=== PATIENT | male | born 1980 | race Caucasian/White ===

== ENCOUNTER 2017-07-11 21:34 | Emergency (ER) | payer OTHER ==
[~2017-07-11] VITALS: Ht 182.9 cm; Wt 65.0 kg
[~2017-07-11 21:34] MED LIST: INSDGI SC; LSN25 PO; NVLGI SC
[2017-07-11 21:35] VITALS: TEMP 36.8; Ht 182.9 cm; Wt 65.0 kg
[2017-07-11 22:21] LABS: BASO % 0.4 %; BASO ABS # 0.02 K/uL (0-0.2); EOS % 2.1 %; EOS ABS # 0.11 K/uL (0-0.5); HEMATOCRIT 40.5 % (42-52); HEMOGLOBIN 13.8 g/dL (14.0-18.0); LYMPH % 42.3 %; LYMPH ABS # 2.25 K/uL (1.2-3.4); MEAN CORPUSCULAR HEMOGLOBIN 31.4 pg (25-34); MEAN CORPUSCULAR HGB CONC 34.1 g/dl (32-36); MEAN PLATELET VOLUME 9.4 fL (7.4-10.4); MONO % 7.3 %; MONO ABS # 0.39 K/uL (0.11-0.59); NEUT % 47.9 %; NEUT ABS # 2.55 K/uL (1.4-6.5); PLATELET COUNT 229 K/uL (130-400); RED CELL DISTRIBUTION WIDTH CV 12.5 % (11.5-14.5); RED CELL DISTRIBUTION WIDTH SD 42.5 fL (36.4-46.3); WHITE BLOOD COUNT 5.32 K/uL (4.8-10.8)
--- NOTE | 2017-07-11 22:25 | EMERGENCY ROOM VISIT NOTE ---
History Report prepared by Alexi: Ashley Ferraro Under the Supervision of: Dr. Shelley Winslow M.D. First contact with patient: 21:50 Chief Complaint: MENTAL HEALTH EVALUATION Stated Complaint: MH History of Present Illness The patient is a 37 year old male who presents to the Emergency Room for a mental health evaluation secondary to a resolved suicidal thought and ideation episode that occurred today. The patient was brought to the Emergency Department by the police. They noted that they found the patient holding a gun, threatening to kill himself. The patient states that he has suicidal thoughts and ideations in the past. HPI limited due to patient being intoxicated and poor cooperation. Source of History: patient History Limited By: poor cooperation, intoxication Onset: today Position: other (mental) Symptom Intensity: Quality: other (mental health evaluation) Timing: resolved Review of Systems See HPI for pertinent positives & negatives. A total of 10 systems reviewed and were otherwise negative. Past Medical & Surgical Insulin-dependent diabetes Hypertension Family History Patient reports no known family medical history. Social History Smoking Status: Current Every Day Smoker Smokeless Tobacco Use: Unknown Alcohol Use: occasionally Marital Status: in relationship Housing Status: lives with family Occupation Status: employed Current/Historical Medications Scheduled Insulin Aspart (Novolog), 0 SC AC Insulin Glargine (Lantus), 20 UNITS SC BID Lisinopril (Lisinopril), 2.5 MG PO DAILY Allergies Coded Allergies: No Known Allergies (Unverified , 07/12/17) Physical Exam Vital Signs Date Time Temp Pulse Resp B/P (MAP) Pulse Ox O2 Delivery O2 Flow Rate FiO2 07/11/17 23:46 82 18 108/60 97 Room Air 07/11/17 21:35 36.8 91 18 123/70 99 Room Air Physical Exam Vital signs reviewed. General: Well-appearing male, somnolent, in no significant distress. Minimally verbal, somewhat uncooperative with exam but not agitated HEENT: No scleral icterus, PERRLA, neck supple. Atraumatic. Cardiovascular: Regular rate and rhythm, no extra sounds. Pulmonary: Clear to auscultation bilaterally, normal work of breathing. Abdomen: Soft, nontender, nondistended, positive bowel sounds. Musculoskeletal: Atraumatic, no peripheral edema. Neurologic: Patient awake alert and oriented x 3, full strength in all 4 extremities. Cranial nerves 2 through 12 grossly intact. Skin: Warm, dry, no rash Psych: refuses to answer questions for psych evaluation. Medical Decision & Procedures Laboratory Results 07/11/17 21:56 Red Blood Count 4.40, Mean Corpuscular Volume 92.0, Mean Corpuscular Hemoglobin 31.4, Mean Corpuscular Hemoglobin Concent 34.1, Mean Platelet Volume 9.4, Neutrophils (%) (Auto) 47.9, Lymphocytes (%) (Auto) 42.3, Monocytes (%) (Auto) 7.3, Eosinophils (%) (Auto) 2.1, Basophils (%) (Auto) 0.4, Neutrophils # (Auto) 2.55, Lymphocytes # (Auto) 2.25, Monocytes # (Auto) 0.39, Eosinophils # (Auto) 0.11, Basophils # (Auto) 0.02 07/11/17 21:56 Test 07/11/17 21:56 07/11/17 22:00 07/12/17 00:52 White Blood Count 5.32 K/uL (4.8-10.8) Red Blood Count 4.40 M/uL (4.7-6.1) Hemoglobin 13.8 g/dL (14.0-18.0) Hematocrit 40.5 % (42-52) Mean Corpuscular Volume 92.0 fL (80-100) Mean Corpuscular Hemoglobin 31.4 pg (25-34) Mean Corpuscular Hemoglobin Concent 34.1 g/dl (32-36) Platelet Count 229 K/uL (130-400) Mean Platelet Volume 9.4 fL (7.4-10.4) Neutrophils (%) (Auto) 47.9 % Lymphocytes (%) (Auto) 42.3 % Monocytes (%) (Auto) 7.3 % Eosinophils (%) (Auto) 2.1 % Basophils (%) (Auto) 0.4 % Neutrophils # (Auto) 2.55 K/uL (1.4-6.5) Lymphocytes # (Auto) 2.25 K/uL (1.2-3.4) Monocytes # (Auto) 0.39 K/uL (0.11-0.59) Eosinophils # (Auto) 0.11 K/uL (0-0.5) Basophils # (Auto) 0.02 K/uL (0-0.2) RDW Standard Deviation 42.5 fL (36.4-46.3) RDW Coefficient of Variation 12.5 % (11.5-14.5) Immature Granulocyte % (Auto) 0.0 % Immature Granulocyte # (Auto) 0.00 K/uL (0.00-0.02) Anion Gap 14.0 mmol/L (3-11) Est Creatinine Clear Calc Drug Dose 88.6 ml/min Estimated GFR () 104.1 Estimated GFR (Non- 89.8 BUN/Creatinine Ratio 14.7 (10-20) Calcium Level 8.5 mg/dl (8.5-10.1) Total Bilirubin 0.4 mg/dl (0.2-1) Direct Bilirubin < 0.1 mg/dl (0-0.2) Aspartate Amino Transf (AST/SGOT) 34 U/L (15-37) Alanine Aminotransferase (ALT/SGPT) 41 U/L (12-78) Alkaline Phosphatase 72 U/L (45-117) Total Protein 6.8 gm/dl (6.4-8.2) Albumin 3.6 gm/dl (3.4-5.0) Beta-Hydroxybutyric Acid 2.46 mg/dL (0.2-2.81) Salicylates Level < 1.7 mg/dl (2.8-20) Acetaminophen Level < 2 ug/ml (10-30) Ethyl Alcohol mg/dL 80.8 mg/dl (0-3) Urine Color YELLOW Urine Appearance CLEAR (CLEAR) Urine pH 5.0 (4.5-7.5) Urine Specific [place] 1.043 (1.000-1.030) Urine Protein NEG (NEG) Urine Glucose (UA) 3+ (NEG) Urine Ketones NEG (NEG) Urine Occult Blood NEG (NEG) Urine Nitrite NEG (NEG) Urine Bilirubin NEG (NEG) Urine Urobilinogen NEG (NEG) Urine Leukocyte Esterase NEG (NEG) Urine Opiates Screen POS (NEG) Urine Methadone, Qualitative NEG (NEG) Urine Barbiturates NEG (NEG) Urine Phencyclidine (PCP) Level NEG (NEG) Ur Amphetamine/Methamphetamine POS (NEG) MDMA (Ecstasy) Screen NEG (NEG) Urine Benzodiazepines Screen NEG (NEG) Urine Cocaine Metabolite NEG (NEG) Urine Marijuana (THC) POS (NEG) Bedside Glucose 203 mg/dl (70-99) Laboratory results per my review. Medications Administered Medications (Trade) Dose Ordered Sig/Keyshawn Route Start Time Stop Time Status Last Admin Dose Admin Insulin Human Regular (novoLIN-R U-100 PER UNIT) 10 units NOW STAT SC 07/11/17 23:17 07/11/17 23:19 DC 07/11/17 23:40 10 UNITS ED Course 2223: Past medical records reviewed. The patient was evaluated in room A6. A complete history and physical examination was performed. 2317: Patients glucose is 423. Ordered Insulin Human Regular 10 units. 0026: Repeating glucose. 0049: Medically clear. Somewhat obtundent yet. 0101: The patients glucose is 203. Medical Decision Differential diagnosis: Etiologies such as mood disorder, infection, hypoglycemia, electrolyte abnormalities, cardiac sources, intracerebral event, toxicologic, neurologic, as well as others were entertained. This patient was evaluated and appeared to be in no significant distress. Medical evaluation reveals hyperglycemia. The patient was given 10 units of regular insulin subcutaneously. Patient's blood sugar did come down to 203. He was encouraged with by mouth fluids. The patient has a 302 warrant by police regarding loading shotguns and threatening suicide this evening. He did barricaded himself in the house. The patient refuses voluntary admission and the 302 was signed. A bed search is currently underway. The case will be signed out to Dr. Dozier at the change of shift pending at the health placement. Medication Reconcilliation Current Medication List: was personally reviewed by me Impression Primary Impression: Suicidal ideation Additional Impressions: Hyperglycemia Poorly controlled diabetes mellitus Scribe Attestation The scribe's documentation has been prepared under my direction and personally reviewed by me in its entirety. I confirm that the note above accurately reflects all work, treatment, procedures, and medical decision making performed by me. Departure Information Referrals Priyanka Dawn M.D. (PCP) Forms HOME CARE DOCUMENTATION FORM, IMPORTANT VISIT INFORMATION Patient Instructions My [facility] Problem Qualifiers
[2017-07-11 22:44] LABS: ALBUMIN 3.6 gm/dl (3.4-5.0); ALKALINE PHOSPHATASE 72 U/L (45-117); ALT/SGPT 41 U/L (12-78); AST/SGOT 34 U/L (15-37); BLOOD UREA NITROGEN 16 mg/dl (7-18); CALCIUM 8.5 mg/dl (8.5-10.1); CARBON DIOXIDE 22 mmol/L (21-32); CREATININE 1.06 mg/dl (0.60-1.40); GLUCOSE 435 mg/dl (70-99); POTASSIUM 3.9 mmol/L (3.5-5.1); SODIUM 137 mmol/L (136-145); TOTAL PROTEIN 6.8 gm/dl (6.4-8.2)
[2017-07-11] MEDS ORDERED: NovoLIN-R INSULIN PER UNIT CHARGE SC STA (23:17)
[2017-07-12] MEDS ORDERED: LISINOPRIL 2.5 MG TAB PO STA (04:54)
--- NOTE | 2017-07-12 05:59 | EMERGENCY ROOM VISIT NOTE ---
ED Visit Note First contact with patient: 04:54 This case was signed out to me at change of shift awaiting bed placement. [facility] and [facility] are having difficulty finding [facility] for him. Currently his information was relayed to [facility] and they are looking for a bed. He has been resting comfortably. I will prescribe his morning medications. The patient has been accepted at [facility] in [place], [place]. He will be transported there by the [place].
[2017-07-12 07:32] VITALS: BP 132/75; PULSE 96; O2SAT 99
== END 2017-07-12 07:58 ==
LOC: EDBD 21:34 → C.EDA 21:36
DX: R45.851 Suicidal ideations (principal); E11.65 Type 2 diabetes mellitus with hyperglycemia; F19.920 Other psychoactive substance use, unspecified with intoxication, uncomplicated; I10 Essential (primary) hypertension; F17.200 Nicotine dependence, unspecified, uncomplicated; Z79.4 Long term (current) use of insulin

== ENCOUNTER 2023-01-07 12:13 | Inpatient (IN) ==
--- NOTE | 2023-01-07 12:30 | Emergency Department Note ---
Impression & Plan Tension pneumothorax, Type 1 diabetes mellitus, Tobacco use disorder, Hypertension ED Provider Note NAME: WOLF SARABIA AGE: 42 SEX: M : 1980 ARRIVES VIA: Walk-In INFORMANT: Patient, ED PROVIDER(S): Brooks Ball MD CHIEF COMPLAINT: Shortness of breath MEDICAL DECISION MAKING: Patient presents due to concern for shortness of breath associated chest discomfort with concern for spontaneous pneumothorax. IV was established blood was obtained along with a chest x-ray and EKG. The patient was ordered IV morphine and IV fluids. Patient's chest x-ray did show concern for right-sided tension pneumothorax. The patient was not extremis. The patient did have a pigtail catheter chest tube placed with post placement chest x-ray showed reexpansion of the patient's lung. The patient was ordered additional IV morphine. Patient's blood work shows normal white count H&H and platelet count. Kidney function is unremarkable. BSG at 205. LFTs and troponin not elevated. COVID- negative. I did speak with on-call multimedia technician Dr. Hannah will be consulted on the inpatient service. I did speak with the on-call hospitalist Dr. Stearns and the patient was admitted to the medicine service. Patient did have a CT noncontrast of the chest ordered as recommended by pulmonology. Patient does have small right residual pneumothorax but markedly decreased in size compared to initial chest x-ray. Patient may have some reexpansion pulmonary edema. Additional management deferred to inpatient team. Critical Care: I have personally spent 45 minutes of critical care time in direct management of this patient. This includes bedside care, interpretation of diagnostic studies, and testing, discussion with consultants, patient, and family members, and other require inpatient management activities. This 45 minutes is in excess of all separately billable procedures. Procedures: Tube Thoracostomy performed by Dr. Ball Indication: Pneumothorax right chest Verbal consent was obtained after the risks and benefits were explained, including but not limited to cardiac/liver/lung injury, bleeding, scarring, infection, pain, and bone/joint/nerve damage. At this time, the risks of the procedure are less than the risks of NOT performing the procedure. A time out was taken and the correct patient and site identified. This is also confirmed by looking at the patient's chest x-ray at the bedside. The patient was prepped and draped in the standard surgical fashion. 1% lidocaine with epinephrine was infused over the right fifth intercostal space into the subcutaneous tissue. An 18-gauge finder needle was placed into the intercostal space after appropriate local anesthesia was appreciated. Air was aspirated within the 10 cc syringe. The syringe was removed and a guidewire was placed. The finder needle was removed while holding the guidewire in place. A skin jenny was applied using the a scalpel and then a dilator was inserted. A 9 [place] thoracostomy tube was inserted in the superior/posterior portion of the pleural space. 1-0 silk suture was used to approximate the skin above the thoracostomy tube and then used to secure the thoracostomy tube. An occlusive dressing was then placed and the thoracostomy tube was hooked to the Pleur-evac suction. The patient tolerated the procedure well without complications. A postoperative x-ray was then performed which showed the thoracostomy tube in the correct position. Prior /Outside records reviewed: I did review a diabetes visit from [facility] from October 2022. Patient does have a known history of type 1 diabetes hypertension hyperlipidemia Differential diagnosis: Reactive airway disease, pneumonia, pneumothorax, COPD, CHF, infections, cardiac ischemia, pulmonary embolism, musculoskeletal, gastrointestinal, as well as other pathologies. Diagnostics, as interpreted by me: ECG: Sinus bradycardia, rate of 58, normal intervals and normal axis T wave version in V2. Cardiac monitoring: An order was placed for continuous cardiac monitoring. The monitor shows a rate of 71 with sinus rhythm. Patient was placed on pulse oximetry Medical decision rules: Heart score, Wells score Imaging studies: See below I informally reviewed the patient's initial chest x-ray which does show a right- sided pneumothorax. I informally reviewed the patient's postprocedure chest x-ray which shows satisfactory placement of pigtail catheter and resolution of the patient's pneumothorax with appropriate lung expansion. HPI: Patient presents due to concern for shortness of breath and associated chest pains. The patient states that this began last evening was more in his right back. The patient denies any coughing fits falls or trauma. Patient states that he has had some associated chest pain and shortness of breath. Patient relates that while he was at [facility] today he did have an acupuncture treatment which did not help with his shortness of breath or chest pain. The patient did have an x-ray which showed a pneumothorax and thus he was referred here for further evaluation and treatment. Patient states that he did not have any coughing fits and was not bearing down and did not have any sneezing episodes prior to his symptoms. The patient is a chronic smoker beginning smoking when he was 14 years of age. The patient denies any leg swelling or calf pain. No fevers or chills. PAST MEDICAL HISTORY: See Below PAST SURGICAL HISTORY: See Below SOCIAL HISTORY: See Below HOME MEDICATIONS: See Below ALLERGIES: See Below VITALS: See Below PHYSICAL EXAMINATION: GENERAL: Wearing glasses, nasal cannula in place, mildly uncomfortable in appearance. Thin in appearance. EYE EXAM: Normal conjunctiva. PERRL, no anisocoria and EOM's grossly intact w/o pain. Oropharynx: Grossly normal dentition, moist mucous membranes. NECK: Supple, no nuchal rigidity, no adenopathy, non-tender. No signs of meningi smus. FROM of the neck with good chin to chest and neck extension. No stridor. LUNGS: Decreased breath sounds right chest. Normal chest wall mechanics. HEART: NSR, no MRG. ABDOMEN: Abdomen soft, non-tender, no masses, no rebound or guarding. BACK: No CVA TTP. SKIN: No rashes and no bruising. UPPER EXTREMITIES: Upper extremities are grossly normal. LOWER EXTREMITIES: Grossly normal, no edema. Negative Homans' sign bilaterally. NEURO EXAM: A&O x3, cranial nerves II-XII grossly intact, normal speech, moves all 4 extremities. Past Med/Surg History Medical History Dyslipidemia Generalized anxiety disorder Hypertension Nondisplaced fracture of proximal phalanx of left index finger Substance abuse in remission Tobacco use disorder Type 1 diabetes mellitus Surgical History No pertinent past surgical history Social History Smoking Status: Current every day smoker Cigarettes Per Day: 10-15; Preferred Language: Kinyarwanda Feels Safe at Home: Yes Allergies Allergies Allergy/AdvReac Type Severity Reaction Status Date / Time insulin degludec Allergy Unknown Unverified 11/03/22 13:56 [From Tresiba FlexTouch U-100] rosuvastatin AdvReac Intermediate Dizziness Verified 11/03/22 13:57 atorvastatin AdvReac sore Verified 11/03/22 13:56 shoulders Home Meds Home Medications Medication Instructions Recorded Confirmed lisinopril 2.5 mg tablet 2.5 mg PO DAILY 09/24/20 01/07/23 blood sugar diagnostic (Accu-Chek #10 ea 06/06/22 11/03/22 Guide test strips) insulin aspart U-100 100 unit/mL 14 unit subcut DIRECTED 06/06/22 01/07/23 (3 mL) subcutaneous pen (Novolog FlexPen U-100 Insulin aspart) insulin glargine 100 unit/mL (3 16 unit subcut BID 11/03/22 01/07/23 mL) subcutaneous pen (Lantus Solostar U-100 Insulin) pravastatin 20 mg tablet 20 mg PO DAILY 11/03/22 01/07/23 Previous Rx's Medication Instructions Recorded glucagon 3 mg/actuation nasal 3 mg intranasal ONCE #2 ea 10/31/20 spray (Baqsimi) Results & Data (ED) Vital Signs Vital Signs - 24 hr 01/07/23 12:15 01/07/23 12:27 01/07/23 12:38 Temperature 36.5 C Temperature Source Temporal Artery Scan Pulse Rate 75 65 Pulse Rate [Apical] 63 Pulse Rate from SpO2 Sensor Respiratory Rate 18 18 Respiratory Effort / Characteristics Non-Labored Spontaneous Respiratory Depth Normal Respiratory Pattern Regular Blood Pressure 117/62 Blood Pressure [Right Arm] 123/72 Blood Pressure Mean 80 Blood Pressure Mean [Right Arm] 89 Pulse Oximetry 94 96 Oxygen Delivery Method Room Air Oxygen Flow Rate Sepsis Recent Fever Within 48 Hours No Sepsis New/Unexplained Change in Mental Status No Sepsis Action Taken by Nursing No Action Required 01/07/23 13:01 01/07/23 13:30 01/07/23 14:00 Temperature Temperature Source Pulse Rate 72 56 L Pulse Rate [Apical] Pulse Rate from SpO2 Sensor 63 Respiratory Rate 19 14 Respiratory Effort / Characteristics Short of Breath Respiratory Depth Shallow Respiratory Pattern Blood Pressure 132/74 Blood Pressure [Right Arm] Blood Pressure Mean 93 Blood Pressure Mean [Right Arm] Pulse Oximetry 98 97 Oxygen Delivery Method Nasal Cannula Room Air Oxygen Flow Rate 3 Sepsis Recent Fever Within 48 Hours Sepsis New/Unexplained Change in Mental Status Sepsis Action Taken by Nursing 01/07/23 15:05 01/07/23 16:26 01/07/23 16:48 Temperature Temperature Source Pulse Rate 44 L 46 L Pulse Rate [Apical] Pulse Rate from SpO2 Sensor Respiratory Rate 17 Respiratory Effort / Characteristics Respiratory Depth Respiratory Pattern Blood Pressure 126/75 Blood Pressure [Right Arm] Blood Pressure Mean 92 Blood Pressure Mean [Right Arm] Pulse Oximetry 98 Oxygen Delivery Method Room Air Room Air Oxygen Flow Rate 3 Sepsis Recent Fever Within 48 Hours Sepsis New/Unexplained Change in Mental Status Sepsis Action Taken by [facility] Medications Current Medication List: was personally reviewed by me Laboratory Data Attestation: I reviewed the patient's lab results. 01/07/23 12:20 01/07/23 12:20 Lab Results 01/07/23 01/07/23 01/07/23 Range/Units 12:20 12:20 13:00 WBC 6.13 (4.8-10.8) K/ul RBC 4.76 (4.70-6.10) M/uL Hgb 14.9 (14.0-18.0) g/dl Hct 43.4 (42.0-52.0) % MCV 91.2 (80.0-100.0) fL MCH 31.3 (25.0-34.0) pg MCHC 34.3 (32.0-36.0) g/dL RDW Std Deviation 38.7 (36.4-46.3) fL RDW Coeff of Julius 11.4 L (11.5-14.5) % Plt Count 209 (130-400) K/uL MPV 9.8 (9.4-12.4) fL Immature Gran % (Auto) 0.2 % Neut % (Auto) 65.4 % Lymph % (Auto) 27.2 % [place] % (Auto) 6.7 % Eos % (Auto) 0.3 % Baso % (Auto) 0.2 % Neut # (Auto) 4.01 (1.40-6.50) K/uL Lymph # (Auto) 1.67 (1.2-3.4) K/uL [place] # (Auto) 0.41 (0.11-0.59) K/uL Eos # (Auto) 0.02 (0-0.50) K/uL Baso # (Auto) 0.01 (0-0.2) K/uL Immature Gran # (Auto) 0.01 (0.01-0.20) K/uL Sodium 137 (136-145) mmol/L Potassium 4.2 (3.5-5.1) mmol/L Chloride 105 (98-107) mmol/L Carbon Dioxide 26 (21-32) mmol/L Anion Gap 6 (3-11) BUN 9 (6-23) mg/dl Creatinine 1.01 (0.6-1.4) mg/dl Est Cr Clr Drug Dosing 93.9 ml/min Est GFR ( Amer) 106.6 ml/min Est GFR (Non-Af Amer) 92.0 ml/min BUN/Creatinine Ratio 8.9 L (10-20) Glucose 205 H (70-99(Fasting)) mg/dl Calcium 9.0 (8.6-10.3) mg/dl Magnesium 2.0 (1.7-2.4) mg/dl Total Bilirubin 0.6 (0.2-1.0) mg/dl AST 31 (13-39) U/L ALT 25 (7-52) U/L Alkaline Phosphatase 68 (34-104) U/L Troponin I High Sens 4.3 (0-20) pg/ml Total Protein 6.9 (6.0-8.3) gm/dl Albumin 4.4 (3.4-5.0) gm/dl Globulin 2.5 (2.5-4.0) gm/dl Albumin/Globulin Ratio 1.8 (0.9-2) SARS-CoV-2, RNA, NAAT NEGATIVE (NEGATIVE) Administered Medications Discontinued Medications Sodium Chloride (Nss 1000ml) 1,000 mls @ 999 mls/hr IV .Q1H1M MIKAEL Stop: 01/07/23 13:45 Last Infusion: 01/07/23 14:04 Dose: 0 mls/hr Documented By: Admin: 01/07/23 13:03 Dose: 999 mls/hr Documented By: MMClare Lidocaine/Epinephrine (Lidocaine 1%/Epinephrine 1:100,000 20 Ml Vial) 20 ml INFIL NOW STA Stop: 01/07/23 12:43 Last Admin: 01/07/23 13:24 Dose: 20 ml Documented By: KDL Lidocaine/Epinephrine (Lido/Epinephrine/Sod Bicarb 50 Ml Vial) Confirm Administered Dose 1 ml INFIL .STK-MED ONE Stop: 01/07/23 12:43 Last Admin: 01/07/23 13:23 Dose: Not Given Documented By: MARIELA Morphine Sulfate (Morphine Sulfate 4 Mg/Ml 1 Ml Carp\Vial) 4 mg IV NOW STA Stop: 01/07/23 12:34 Last Admin: 01/07/23 13:03 Dose: 4 mg Documented By: MARIELA Morphine Sulfate (Morphine Sulfate 4 Mg/Ml 1 Ml Carp\Vial) 4 mg IV NOW STA Stop: 01/07/23 15:04 Last Admin: 01/07/23 15:08 Dose: 4 mg Documented By: MARIELA Imaging Data Radiologist's Impression: Chest X-Ray 01/07/23 12:33 SINGLE VIEW CHEST CLINICAL HISTORY: Dyspnea. FINDINGS: 2 AP, portable, upright chest radiographs are obtained. No prior studies are available for comparison at the time of dictation. There is a large right pneumothorax with near complete atelectasis of the right lung. There is leftward deviation of the trachea indicating tension. The left lung appears clear. There is leftward shift of mediastinum. The heart is normal in size. No large pleural effusion is seen. No left-sided pneumothorax is identified. The bony thorax is grossly intact. IMPRESSION: Large right-sided tension pneumothorax with near complete atelectasis of the right lung and leftward shift of the mediastinum. ACT 112: Negative or not required by law. Electronically signed by: Jakob Gandara M.D. 01/07/2023 12:54 PM Chest X-Ray 01/07/23 13:34 XR chest 1V portable HISTORY: Right-sided pneumothorax. Post chest tube placement. post pigtail COMPARISON: Chest 01/07/2023. FINDINGS: Interval placement of a right-sided chest tube which terminates in the right upper hemithorax. Significant decrease in size in the now small right pneumothorax. This demonstrate a maximal pleural gap of 7 mm. Right basilar linear densities favor subsegmental atelectasis. The left lung is clear. No mediastinal shift. The heart is normal in size. IMPRESSION: Significant decrease in size in the now small right-sided pneumothorax status post chest tube placement. Interval resolution of the mediastinal shift. ACT 112: Negative or not required by law. Electronically signed by: Jmaes Diaz M.D. 01/07/2023 1:[address] 01/07/23 13:53 CT OF THE CHEST WITHOUT IV CONTRAST CLINICAL HISTORY: post PNX treatment COMPARISON STUDY: Chest radiographs performed earlier today. CT DOSE: 268.86 mGy.cm TECHNIQUE: Axial images of the chest were obtained without IV contrast. Images were reviewed in the axial, sagittal, and coronal planes. IV contrast was not administered for this examination. Automated exposure control was utilized for the study. A dose lowering technique was utilized adhering to the principles of ALARA. FINDINGS: The right anterior pleural catheter is in place. A small residual right pneumothorax is noted. This is markedly decreased in size since initial chest radiograph performed earlier today and mildly decreased in size since subsequent chest radiograph. Scattered alveolar opacities throughout the right lung are present. Subpleural right lower lobe opacity reflects atelectasis. There is no left pneumothorax. No acute rib fractures are identified. There are numerous subpleural lucencies within the right upper lobe. These favor paraseptal emphysema however subpleural blebs could appear similar. Size of the heart is normal. There is no pericardial effusion. There is no thoracic lymphadenopathy. IMPRESSION: 1. Right anterior pleural catheter in place with small residual right pneumothorax, markedly decreased in size since initial chest radiograph. 2. Scattered alveolar opacities throughout the right lung. Mild interlobular septal thickening. The findings are nonspecific but could reflect reexpansion pulmonary edema. Subpleural right lower lobe opacity represents minimal residual atelectasis. 3. Multiple subpleural lucencies within the lungs, greater on the right. The findings favor paraseptal emphysema however small blebs could appear similar. ACT 112: Negative or not required by law. Electronically signed by: Garrett Bailey M.D. 01/07/2023 3:51 PM Discharge Plan Visit Data Chief Complaint: Shortness of Breath/Dyspnea Stated Complaint: COLLAPED LUNG ED Provider: Brooks Ball Discharge Problem: Tension pneumothorax, Type 1 diabetes mellitus, Tobacco use disorder, Hypertension Forms Stand Alone Forms: My [employer] Prescriptions Prescriptions: No Action lisinopril 2.5 mg tablet 2.5 mg PO DAILY Rx Instructions: 5 MG TAB TO TAKE 2.5 DAILY [facility]ified with [facility]- 01/07/23 (DME) Accu-Chek Guide test strips Strip See Rx Instructions .ROUTE .MEDSUPPLY Qty: 10 Rx Instructions: test 5 times daily insulin aspart U-100 [Novolog FlexPen U-100 Insulin] 100 unit/mL (3 mL) insulin pen 14 unit subcut DIRECTED Rx Instructions: INJECT 6 UNITS SQ LUNCH AND 8 UNITS SQ SUPPER FOR DIABETE 3 TIMES A DAY Verified with [facility]- 01/07/23 insulin glargine [Lantus Solostar U-100 Insulin] 100 unit/mL (3 mL) insulin pen 16 unit subcut BID Rx Instructions: INJECT 15 UNITS BID Verified with [facility]ist- 01/07/23 Baqsimi 3 mg/actuation spray,non-aerosol 3 mg intranasal ONCE Qty: 2 4RF Rx Instructions: [facility] pharmacist wasn't able to verify pravastatin 20 mg tablet 20 mg PO DAILY Rx Instructions: 40 MG TABLET IN HALF FOR 20 MG DAILY Verified with [facility]- 01/07/23 Referrals Referrals: Omar Hernandez MD [Outside Practitioners] -
[2023-01-07] MEDS ORDERED: LIDOCAINE 1%/EPINEPHRINE 1:100,000 50 ML VIAL INFIL ONE (12:33)
[2023-01-07] MEDS ORDERED: MoRPHine SULFATE 4 MG/ML 1 ML CARP\\VIAL IV STA ×2 (12:33→15:03)
[2023-01-07] MEDS ORDERED: LIDOCAINE 1%/EPINEPHRINE 1:100,000 20 ML VIAL INFIL STA (12:42)
[2023-01-07] MEDS ORDERED: LIDO/EPINEPHRINE/SOD BICARB 50 ML VIAL INFIL ONE (12:42)
[2023-01-07] MEDS ORDERED: SODIUM CHLORIDE 0.9% 1000ML 1,000 ML IV SCH (12:45)
--- NOTE | 2023-01-07 12:56 | XRay Report ---
SINGLE VIEW CHEST CLINICAL HISTORY: Dyspnea. FINDINGS: 2 AP, portable, upright chest radiographs are obtained. No prior studies are available for comparison at the time of dictation. There is a large right pneumothorax with near complete atelectas is of the right lung. There is leftward deviation of the trachea indicating tension. The left lung ap pears clear. There is leftward shift of mediastinum. The heart is normal in size. No large pleural ef fusion is seen. No left-sided pneumothorax is identified. The bony thorax is grossly intact. IMPRESSION: Large right-sided tension pneumothorax with near complete atelectasis of the right lung a nd leftward shift of the mediastinum. ACT 112: Negative or not required by law. Electronically signed by: Jakob Gandara M.D. 01/07/2023 12:54 PM
[2023-01-07 13:17] LABS: Basophils # (auto) 0.01 K/uL (0-0.2); Basophils % (auto) 0.2 %; Eosinophils # (auto) 0.02 K/uL (0-0.50); Eosinophils % (auto) 0.3 %; Hematocrit (blood only) 43.4 % (42.0-52.0); Hemoglobin 14.9 g/dl (14.0-18.0); Immature Granulocytes # (auto) 0.01 K/uL (0.01-0.20); Immature Granulocytes % (auto) 0.2 %; Lymphocytes # (auto) 1.67 K/uL (1.2-3.4); Lymphocytes % (auto) 27.2 %; Mean Corpuscular Hemoglobin 31.3 pg (25.0-34.0); Mean Corpuscular Hgb Conc 34.3 g/dL (32.0-36.0); Mean Corpuscular Volume 91.2 fL (80.0-100.0); Mean Platelet Volume 9.8 fL (9.4-12.4); Monocytes # (auto) 0.41 K/uL (0.11-0.59); Monocytes % (auto) 6.7 %; Neutrophils # (auto) 4.01 K/uL (1.40-6.50); Neutrophils % (auto) 65.4 %; Platelet Count 209 K/uL (130-400); RDW Coefficient of Variation 11.4 % (11.5-14.5); RDW Standard Deviation 38.7 fL (36.4-46.3); Red Blood Count 4.76 M/uL (4.70-6.10); White Blood Count 6.13 K/ul (4.8-10.8)
[2023-01-07 13:25] LABS: Albumin Globulin Ratio 1.8 (0.9-2); Albumin Level 4.4 gm/dl (3.4-5.0); BUN Creatinine Ratio 8.9 (10-20); Bilirubin,Total 0.6 mg/dl (0.2-1.0); Creatinine Clr Calc Pharmacy 93.9 ml/min; Est GFR (African American) 106.6 ml/min; Globulin 2.5 gm/dl (2.5-4.0); Potassium 4.2 mmol/L (3.5-5.1); Total Protein 6.9 gm/dl (6.0-8.3)
[2023-01-07 13:32] LABS: Troponin I High Sensitivity 4.3 pg/ml (0-20)
--- NOTE | 2023-01-07 13:56 | History & Physical Report ---
Date of Service January 07, 2023 Assessment & Plan (1) Tension pneumothorax: Plan: RIGHT Spontaneous pneumothorax, first episode with shortness of breath/chest pain - Spontaneous pneumothorax, first episode. Denies inciting trauma but was lifting boxes shortly before episode started - Tobacco use since age 14 - S/p pigtail placement in ER with lung re-expansion - Pulmonary consulted: Non-con CT recommended and will see. No leukocytosis Creatinine 1.01 BSG 205 High-sensitivity troponin is normal EKG: Sinus bradycardia. Incomplete right bundle branch block, QTc 402. No territorial signs of ischemia CXR 01/07/2023: Large right-sided tension pneumothorax with near complete atelectasis of the right lung and leftward shift of the mediastinum Repeat CXR: Significant decrease in size in the now small right-sided pneumothorax status post chest tube placement. Interval resolution of the mediastinal shift. Routine chest tube care, suction overnight then clamp if doing well. Morning chest x-ray for surveillance ordered CTchest: 1. Right anterior pleural catheter in place with small residual right pneumothorax, markedly decreased in size since initial chest radiograph. 2. Scattered alveolar opacities throughout the right lung. Mild interlobular septal thickening. The findings are nonspecific but could reflect reexpansion pulmonary edema. Subpleural right lower lobe opacity represents minimal residual atelectasis.3. Multiple subpleural lucencies within the lungs, greater on the right. The findings favor paraseptal emphysema however small blebs could appear similar. Type I DM Follows with endocrine as outpatient at [facility] Has declined insulin pump previously Goal BSG [id number] No evidence of DKA on admission, slightly hyperglycemic at 205 Last A1c greater than 9% We will continue home Lantus 17 units morning, 20 units evening per last note but --> now 15 BID per pt. Pharmacy glycemic consult placed for adjustments Polysubstance abuse Patient reports that he did use methamphetamine for the first time this past Thursday, first use in 5 years. Also uses multiple forms of marijuana daily including flower, smoked, and vape. He denies history of COPD or wheezing, discussed fact of ongoing tobacco use and substance use on development of COPD and association with pneumothorax. Patient declines nicotine replacement therapy on admission Hypertension Lisinopril continued DVT prophylaxis: SCDs Disposition: PCU CODE STATUS: Full code Diet: DM 1 (2) Tobacco use disorder: (3) Type 1 diabetes mellitus: (4) Hypertension: (5) Dyslipidemia: History of Present Illness Primary Care Provider: NO PCP Dennis is a 42-year-old male with a past medical history of diabetes mellitus, hypertension, hyperlipidemia, tobacco use who presents with shortness of breath and chest pain. He was found to have a spontaneous pneumothorax at the [facility] today Art is seen at the bedside Thursday night was loading his car. Had a cigarette after and laid down felt a sudden sharp pain shoot across his back. Went to lay flat and felt restricted. Couldnt lay on R side, L side was confirmable and fell asleep Got up this morning and was very short of breath and having a ton a ton of pain in his R shoulder and back. No wheezing [facility] Had an acupuncture treatment above the lip which actually helped his back muscle tension. Due to the severity of his symptoms was sent for an XR and was given a script for NSAID and muscle relaxer. Go ta call as he was walking in --> told to come directly to the ER No history of chest trauma or injury Denies history of heart disease No fevers, chills, or sweats. Denies cough, no sputum production Denies history of COPD, denies any inhaler use Tobacco Use: Since 14 years old, ~1ppd. Etoh: One day per week, 1-3 per sitting. No history of withdrawal Marijuana: Daily smoked in addition to vape pen, concentrates and flour Recreational Drug use: Intermittent methamphetamine use. smoked meth this past thursday, first travis ehe used in ~5 years. Denies hx of IVDU. Medical History: Reviewed Medications: Reviewed Surgical History: Reviewed Family history: Reviewed Allergies: Reviewed Code Status: Full Code Allergies Allergy/AdvReac Type Severity Reaction Status Date / Time insulin degludec Allergy Unknown Unverified 11/03/22 13:56 [From Tresiba FlexTouch U-100] rosuvastatin AdvReac Intermediate Dizziness Verified 11/03/22 13:57 atorvastatin AdvReac sore Verified 11/03/22 13:56 shoulders Home Medications Medication Instructions Recorded Confirmed Type lisinopril 2.5 mg tablet 2.5 mg PO DAILY 09/24/20 01/07/23 History glucagon 3 mg/actuation nasal 3 mg intranasal ONCE #2 ea 10/31/20 11/03/22 Rx spray (Baqsimi) blood sugar diagnostic (Accu-Chek #10 ea 06/06/22 11/03/22 History Guide test strips) insulin aspart U-100 100 unit/mL 14 unit subcut DIRECTED 06/06/22 01/07/23 History (3 mL) subcutaneous pen (Novolog FlexPen U-100 Insulin aspart) insulin glargine 100 unit/mL (3 16 unit subcut BID 11/03/22 01/07/23 History mL) subcutaneous pen (Lantus Solostar U-100 Insulin) pravastatin 20 mg tablet 20 mg PO DAILY 11/03/22 01/07/23 History Past Med/Surg History Medical History (Updated 01/07/23 @ 15:11 by Santos Hannah MD) Dyslipidemia Generalized anxiety disorder Hypertension Nondisplaced fracture of proximal phalanx of left index finger Substance abuse in remission Tobacco use disorder Type 1 diabetes mellitus Surgical History No pertinent past surgical history Social History Smoking Status: Current every day smoker Cigarettes Per Day: 10-15; Preferred Language: Yemeni Feels Safe at Home: Yes Results & Data Results & Data Vital Signs (Past 12 Hours) Vital Signs Temp Pulse Pulse Resp BP BP Pulse Ox 01/07/23 13:30 72 19 98 01/07/23 13:01 01/07/23 12:38 65 01/07/23 12:27 63 18 123/72 96 01/07/23 12:15 36.5 C 75 18 117/62 94 O2 Del Method O2 Flow Rate 01/07/23 13:30 01/07/23 13:01 Nasal Cannula 3 01/07/23 12:38 01/07/23 12:27 01/07/23 12:15 Room Air PG Care Time/CCT Total # of Minutes Spent Total Time Spent with Patient: Total time spent is greater than 50% in coordination of care (as documented) at patient's floor/unit and/or counseling patient: Coding Level of Care Code 57919 INT INP/OBS CARE 3/75MIN Diagnoses Tension pneumothorax J93.0 Tobacco use disorder F17.200 Type 1 diabetes mellitus E10.9 Hypertension I10 Hypertension type: essential hypertension Dyslipidemia E78.5 (4) Hypertension Hypertension type: essential hypertension Qualified Code(s): I10 - Essential (primary) hypertension
--- NOTE | 2023-01-07 13:59 | XRay Report ---
XR chest 1V portable HISTORY: Right-sided pneumothorax. Post chest tube placement. post pigtail COMPARISON: Chest 01/07/2023. FINDINGS: Interval placement of a right-sided chest tube which terminates in the right upper hemithor ax. Significant decrease in size in the now small right pneumothorax. This demonstrate a maximal pleu ral gap of 7 mm. Right basilar linear densities favor subsegmental atelectasis. The left lung is eva r. No mediastinal shift. The heart is normal in size. IMPRESSION: Significant decrease in size in the now small right-sided pneumothorax status post chest tube placeme nt. Interval resolution of the mediastinal shift. ACT 112: Negative or not required by law. Electronically signed by: James Diaz M.D. 01/07/2023 1:58 PM
--- NOTE | 2023-01-07 15:09 | Pulmonary Consultation ---
Date of Consultation January 07, 2023 Assessment & Plan (1) Tension pneumothorax: (2) COPD (chronic obstructive pulmonary disease): (3) Tobacco use disorder: Plan Impression: 42-year-old male with history of tobacco abuse presenting with spontaneous pneumothorax. Suspect this is secondary to underlying obstructive lung disease and may have been exacerbated by concomitant marijuana use. Recommendations: 1. Pneumothorax: The dressing was taken down and a repeat dressing was applied with a stopcock in place to allow for clamping trials. The patient has no airleak with cough. Appropriate titling of the tube is noted. The tube was secured in place. Would recommend he remain on suction overnight tonight. If he does well, can proceed with clamping trial in the a.m.. 2. Recommend proceeding with CT of the chest to evaluate for structural lung disease. No fibro follicular adenomas to suggest Issa Dubay syndrome. No family history. Further recommendations will be based on assessment of the patient's CT scan. 3. Smoking cessation and marijuana smoking cessation recommended. 4. Outpatient PFTs in 8 weeks recommended. 5. Patient should avoid commercial flights or significant changes in barometric pressure for at least the next 4 to 5 weeks. Given the spontaneous nature of this event, would not recommend the patient never participate in scuba diving. Additional recommendations will be based on results of imaging studies. Questions were answered by the patient and his the best my ability. They are in agreement with plan as outlined History of Present Illness History of Present Illness Asked by the ER staff to evaluate this patient status post pigtail catheter placement for spontaneous pneumothorax. History is obtained from discussion with the patient as well as review of the electronic medical record. The patient is a 42-year-old male who is an active tobacco abuser. He has a [id number] history and continues to smoke at the rate of 1 pack/day. He states that last evening while going to bed he developed a sharp pain in his right chest. He was able to find a comfortable position and slept through the night. He had smoked some marijuana last night but did not report any significant coughing. He continued to have significant pain and shortness of breath. He went to the CT and had acupuncture performed of his lip however this did not resolve his shortness of breath and he was sent for an x-ray at the CT which reportedly showed a pneumothorax with tension physiology and the patient was advised to go directly to the emergency room. He was seen here and repeat chest x-ray performed demonstrating tension pneumothorax. He was treated with an 8 Hungarian pigtail catheter with follow-up imaging showing resolution of the tension pneumothorax. The patient states his pain and shortness of breath are better. Patient denies any skin lesions. He has no family history of pneumothorax that he is aware of. No history of trauma. No infectious symptoms. Allergies Allergy/AdvReac Type Severity Reaction Status Date / Time insulin degludec Allergy Unknown Unverified 11/03/22 13:56 [From Tresiba FlexTouch U-100] rosuvastatin AdvReac Intermediate Dizziness Verified 11/03/22 13:57 atorvastatin AdvReac sore Verified 11/03/22 13:56 shoulders Home Medications Medication Instructions Recorded Confirmed Type lisinopril 2.5 mg tablet 2.5 mg PO DAILY 09/24/20 01/07/23 History glucagon 3 mg/actuation nasal 3 mg intranasal ONCE #2 ea 10/31/20 11/03/22 Rx spray (Baqsimi) blood sugar diagnostic (Accu-Chek #10 ea 06/06/22 11/03/22 History Guide test strips) insulin aspart U-100 100 unit/mL 14 unit subcut DIRECTED 06/06/22 01/07/23 History (3 mL) subcutaneous pen (Novolog FlexPen U-100 Insulin aspart) insulin glargine 100 unit/mL (3 16 unit subcut BID 11/03/22 01/07/23 History mL) subcutaneous pen (Lantus Solostar U-100 Insulin) pravastatin 20 mg tablet 20 mg PO DAILY 11/03/22 01/07/23 History Patient History Medical History (Updated 01/07/23 @ 15:11 by Santos Hannah MD) Dyslipidemia Generalized anxiety disorder Hypertension Nondisplaced fracture of proximal phalanx of left index finger Substance abuse in remission Tobacco use disorder Type 1 diabetes mellitus Surgical History No pertinent past surgical history Social History Smoking Status: Current every day smoker Cigarettes Per Day: 10-15; Preferred Language: Kazakh Feels Safe at Home: Yes Review of Systems Review of Systems: All systems reviewed & are unremarkable except as noted in Subjective Physical Exam Constitutional: WD/WN, vitals as above Neck: trachea midline, no thyromegaly Respiratory: normal respiratory effort, lungs clear to auscultation Cardiovascular: RRR, no murmur, no edema Chest (Breasts): Additional Comments: Chest tube is present in the anterior axillary line. No air leak on the Pleur- evac at 20 cm of suction Gastrointestinal (Abdomen): normal bowel sounds, soft, nontender, no hepatosplenomegaly Musculoskeletal: Extremities: extremities normal to inspection Skin: no rashes, warm and dry Neurologic: Nonfocal exam Lymphatic: no cervical lymphadenopathy Results & Data Results & Data Vital Signs (Past 12 Hours) Vital Signs Temp Pulse Pulse Resp BP BP Pulse Ox 01/07/23 14:00 56 L 14 132/74 97 01/07/23 13:30 72 19 98 01/07/23 13:01 01/07/23 12:38 65 01/07/23 12:27 63 18 123/72 96 01/07/23 12:15 36.5 C 75 18 117/62 94 O2 Del Method O2 Flow Rate 01/07/23 14:00 Room Air 01/07/23 13:30 01/07/23 13:01 Nasal Cannula 3 01/07/23 12:38 01/07/23 12:27 01/07/23 12:15 Room Air Critical Care Results & Data Vital Signs (Past 12 Hours) Vital Signs Temp Pulse Pulse Resp BP BP Pulse Ox 01/07/23 14:00 56 L 14 132/74 97 01/07/23 13:30 72 19 98 01/07/23 13:01 01/07/23 12:38 65 01/07/23 12:27 63 18 123/72 96 01/07/23 12:15 36.5 C 75 18 117/62 94 O2 Del Method O2 Flow Rate 01/07/23 14:00 Room Air 01/07/23 13:30 01/07/23 13:01 Nasal Cannula 3 01/07/23 12:38 01/07/23 12:27 01/07/23 12:15 Room Air Lab & Micro Results (Past 24 Hours) RBC 4.76 M/uL (4.70-6.10) 01/07/23 WBC 6.13 K/ul (4.8-10.8) 01/07/23 Hgb 14.9 g/dl (14.0-18.0) 01/07/23 Hct 43.4 % (42.0-52.0) 01/07/23 MCV 91.2 fL (80.0-100.0) 01/07/23 MCH 31.3 pg (25.0-34.0) 01/07/23 MCHC 34.3 g/dL (32.0-36.0) 01/07/23 RDW Standard Deviation 38.7 fL (36.4-46.3) 01/07/23 RDW Coefficient of Variation 11.4 % (11.5-14.5) L 01/07/23 Plt Count 209 K/uL (130-400) 01/07/23 MPV 9.8 fL (9.4-12.4) 01/07/23 Neutrophils (%) (Auto) 65.4 % 01/07/23 Lymphocytes (%) (Auto) 27.2 % 01/07/23 Monocytes # (Auto) 0.41 K/uL (0.11-0.59) 01/07/23 Eosinophils # (Auto) 0.02 K/uL (0-0.50) 01/07/23 Immature Granulocyte % (Auto) 0.2 % 01/07/23 Neutrophils # (Auto) 4.01 K/uL (1.40-6.50) 01/07/23 Lymphocytes # (Auto) 1.67 K/uL (1.2-3.4) 01/07/23 Monocytes # (Auto) 0.41 K/uL (0.11-0.59) 01/07/23 Eosinophils # (Auto) 0.02 K/uL (0-0.50) 01/07/23 Basophils # (Auto) 0.01 K/uL (0-0.2) 01/07/23 Immature Granulocyte # (Auto) 0.01 K/uL (0.01-0.20) 3 Na 137 mmol/L (136-145) 01/07/23 K 4.2 mmol/L (3.5-5.1) 01/07/23 Cl 105 mmol/L (98-107) 01/07/23 CO2 26 mmol/L (21-32) 01/07/23 Anion Gap 6 (3-11) 01/07/23 BUN 9 mg/dl (6-23) 01/07/23 Creatinine 1.01 mg/dl (0.6-1.4) 01/07/23 Estimated GFR ( Amer) 106.6 ml/min 01/07/23 Estimated GFR (Non-Af Amer) 92.0 ml/min 01/07/23 BUN/Creatinine Ratio 8.9 (10-20) L 01/07/23 Glu 205 mg/dl (70-99(Fasting)) H 01/07/23 Ca 9.0 mg/dl (8.6-10.3) 01/07/23 Total Bilirubin 0.6 mg/dl (0.2-1.0) 01/07/23 AST 31 U/L (13-39) 01/07/23 ALT 25 U/L (7-52) 01/07/23 Alkaline Phosphatase 68 U/L (34-104) 01/07/23 TP 6.9 gm/dl (6.0-8.3) 01/07/23 Albumin 4.4 gm/dl (3.4-5.0) 01/07/23 Globulin 2.5 gm/dl (2.5-4.0) 01/07/23 Albumin/Globulin Ratio 1.8 (0.9-2) 01/07/23 Mg 2.0 mg/dl (1.7-2.4) 01/07/23 12:20 Calcium Level 9.0 mg/dl (8.6-10.3) 01/07/23 12:20 Diagnostic Findings (Past 24 Hours) Chest X-Ray 01/07/23 12:33 SINGLE VIEW CHEST CLINICAL HISTORY: Dyspnea. FINDINGS: 2 AP, portable, upright chest radiographs are obtained. No prior studies are available for comparison at the time of dictation. There is a large right pneumothorax with near complete atelectasis of the right lung. There is leftward deviation of the trachea indicating tension. The left lung appears clear. There is leftward shift of mediastinum. The heart is normal in size. No large pleural effusion is seen. No left-sided pneumothorax is identified. The bony thorax is grossly intact. IMPRESSION: Large right-sided tension pneumothorax with near complete atelectasis of the right lung and leftward shift of the mediastinum. ACT 112: Negative or not required by law. Electronically signed by: Jakob Gandara M.D. 01/07/2023 12:54 PM Chest X-Ray 01/07/23 13:34 XR chest 1V portable HISTORY: Right-sided pneumothorax. Post chest tube placement. post pigtail COMPARISON: Chest 01/07/2023. FINDINGS: Interval placement of a right-sided chest tube which terminates in the right upper hemithorax. Significant decrease in size in the now small right pneumothorax. This demonstrate a maximal pleural gap of 7 mm. Right basilar linear densities favor subsegmental atelectasis. The left lung is clear. No mediastinal shift. The heart is normal in size. IMPRESSION: Significant decrease in size in the now small right-sided pneumothorax status post chest tube placement. Interval resolution of the mediastinal shift. ACT 112: Negative or not required by law. Electronically signed by: James Diaz M.D. 01/07/2023 1:58 PM I & O Totals 24 Hours 01/06/23 01/07/23 01/08/23 06:59 06:59 06:59 Intake Total 1000 / 1000 Balance 1000 / 1000 Cumulative 01/07/23 12:13 thru 01/07/23 14:04 Intake Total 1000 Balance 1000 RT Ventilator Mngmt (Last Documented) Ventilator Ordered Settings Respiratory Rate 14 01/07/23 14:00 Ventilator - PT Measurements Respiratory Rate 14 PG Care Time/CCT Total # of Minutes Spent Total Time Spent with Patient: Total time spent is greater than 50% in coordination of care (as documented) at patient's floor/unit and/or counseling patient: Coding Level of Care Code 54979 OFFICE CONSULT LVL /40M Diagnoses Tension pneumothorax J93.0 COPD (chronic obstructive pulmonary disease) J44.9 Tobacco use disorder F17.200
--- NOTE | 2023-01-07 15:14 | Electrocardiogram Report ---
Test Reason : Blood Pressure : / mmHG Vent. Rate : 058 BPM Atrial Rate : 058 BPM P-R Int : 118 ms QRS Dur : 096 ms QT Int : 410 ms P-R-T Axes : 082 088 080 degrees QTc Int : 402 ms Sinus bradycardia Incomplete right bundle branch block Borderline ECG No previous ECGs available Confirmed by Narinder Maldonado ([id number]) on 01/07/2023 3:14:48 PM Referred By: Confirmed By:Narinder Maldonado
--- NOTE | 2023-01-07 15:52 | CT Scan Report ---
CT OF THE CHEST WITHOUT IV CONTRAST CLINICAL HISTORY: post PNX treatment COMPARISON STUDY: Chest radiographs performed earlier today. CT DOSE: 268.86 mGy.cm TECHNIQUE: Axial images of the chest were obtained without IV contrast. Images were reviewed in the axial, sagittal, and coronal planes. IV contrast was not administered for this examination. Automat ed exposure control was utilized for the study. A dose lowering technique was utilized adhering to t he principles of ALARA. FINDINGS: The right anterior pleural catheter is in place. A small residual right pneumothorax is no rosanna. This is markedly decreased in size since initial chest radiograph performed earlier today and mi ldly decreased in size since subsequent chest radiograph. Scattered alveolar opacities throughout the right lung are present. Subpleural right lower lobe opacity reflects atelectasis. There is no left p neumothorax. No acute rib fractures are identified. There are numerous subpleural lucencies within th e right upper lobe. These favor paraseptal emphysema however subpleural blebs could appear similar. S ize of the heart is normal. There is no pericardial effusion. There is no thoracic lymphadenopathy. IMPRESSION: 1. Right anterior pleural catheter in place with small residual right pneumothorax, markedly decrease d in size since initial chest radiograph. 2. Scattered alveolar opacities throughout the right lung. Mild interlobular septal thickening. The f indings are nonspecific but could reflect reexpansion pulmonary edema. Subpleural right lower lobe op acity represents minimal residual atelectasis. 3. Multiple subpleural lucencies within the lungs, greater on the right. The findings favor parasepta l emphysema however small blebs could appear similar. ACT 112: Negative or not required by law. Electronically signed by: Garrett Bailey M.D. 01/07/2023 3:51 PM
[2023-01-07] MEDS ORDERED: MoRPHine SULFATE 2 MG/ML CARP IV PRN (20:04)
[2023-01-07] MEDS ORDERED: GLUCAGON FOR INJ 1 MG VIAL SQ PRN (20:04)
[2023-01-07] MEDS ORDERED: POLYETHYLENE (MIRALAX) 17 GM PACK PO PRN (20:04)
[2023-01-07] MEDS ORDERED: PHARMACY GLYCEMIC MGMT CONSULT PRN (20:04)
[2023-01-07] MEDS ORDERED: GLUCOSE 40% GEL 15 GM TUBE PO PRN (20:04)
[2023-01-07] MEDS ORDERED: ACETAMINOPHEN 325 MG TAB PO PRN (20:04)
[2023-01-07] MEDS ORDERED: GLUCOSE 10 TAB/TUBE PO PRN (20:04)
[2023-01-07] MEDS ORDERED: CARBOHYDRATES FOR HYPOGLYCEMIA PO PRN (20:04)
[2023-01-07] MEDS ORDERED: DEXTROSE 50% 50 ML SYRINGE IV PRN (20:04)
[2023-01-07] MEDS: MoRPHine SULFATE 4 MG/ML 1 ML CARP\\VIAL IV PRN (20:20)
[2023-01-07] MEDS: LANTUS PER UNIT CHARGE SQ SCH (21:08)
[2023-01-07] MEDS: INSULIN ASPART PER UNIT CHARGE SC SCH ×2 (21:09→23:44)
[2023-01-08] MEDS: MoRPHine SULFATE 4 MG/ML 1 ML CARP\\VIAL IV PRN (00:18)
[2023-01-08] MEDS ORDERED: MoRPHine SULFATE 2 MG/ML CARP IV PRN (01:55)
[2023-01-08] MEDS: MoRPHine SULFATE 2 MG/ML CARP IV PRN ×3 (06:07→15:09)
[2023-01-08 06:23] LABS: Appearance Urine Clear (Clear); Bilirubin Urine Negative (Negative); Blood Urine Negative (Negative); Color Urine Yellow; Glucose Urine UA 1+ (Negative); Ketones Urine Negative (Negative); Leukocyte Esterase Urine Negative (Negative); Nitrite Urine Negative (Negative); Protein Urine Negative (Negative); Specific Gravity Urine 1.009 (1.000-1.030); Urobilinogen Urine Negative (Negative); pH Urine 7.5 (4.5-7.5)
[2023-01-08 06:29] LABS: Estimated Average Glucose 186 mg/dl; Hemoglobin A1C 8.1 % (4.5-5.6)
--- NOTE | 2023-01-08 07:35 | Pulmonology Progress Note ---
Date of Service January 08, 2023 Assessment & Plan (1) Tension pneumothorax: (2) COPD (chronic obstructive pulmonary disease): (3) Tobacco use disorder: Plan Impression: 42-year-old male with history of tobacco abuse presenting with spontaneous pneumothorax. Suspect this is secondary to underlying obstructive lung disease and may have been exacerbated by concomitant marijuana use. Recommendations: 1. Pneumothorax: Repeat chest x-ray this morning demonstrates resolution of pne umothorax. Patient without significant discomfort or pleuritic pain this morning. Chest tube clamped at 0730. Repeat chest films to be obtained at 11:30 AM. If the patient is without symptoms and lung remains up, chest tube can be pulled at that time and we could plan for discharge later this afternoon. 2. CT study reviewed without significant findings. Slight emphysematous changes noted. 3. Smoking cessation and marijuana smoking cessation recommended. Patient acknowledges and understands need for smoking cessation. 4. Outpatient PFTs in 8 weeks recommended. Discussed the importance of this with the patient who acknowledges understanding. 5. Patient should avoid commercial flights or significant changes in barometric pressure for at least the next 4 to 5 weeks. Given the spontaneous nature of this event, would not recommend the patient never participate in scuba diving. Thank you for allowing us to participate in the care of this patient. We will follow-up with him after repeat chest x-ray. Admission and Anticipated Discharge Date Admission Date: January 07, 2023 Subjective Patient was seen and evaluated by myself at bedside. Chest x-ray was reviewed this morning which demonstrates reinflation of the lung. Conversation with the patient, he is sore at the insertion site, but otherwise has been feeling well. No palpitations, shortness of breath, or significant pleuritic pain. He has had no significant coughing overnight. Otherwise, patient feels well. Review of Systems Review of Systems: Unchanged from admission. Physical Exam Physical Exam: VITAL SIGNS - Vital signs and nursing notes were reviewed. GENERAL - 42-year-old male appearing his stated age who is in no acute distress. Communicates well with provider and answers questions appropriately. SKIN - LEFT sided chest tube site clean, dry, and intact. LUNGS - Chest tube site as above. Auscultation reveals clear breath sounds without wheezes, rales, or rhonchi. CARDIAC - RRR with S1/S2. No murmur, rubs, or gallops appreciated. ABDOMEN - Abdominal inspection demonstrates a flat abdomen. BS normoactive all four quadrants. No tenderness, palpable masses, or ascites noted. PSYCH - A&Ox3 and cooperates fully with examiner. Pt is very pleasant and interacts well with examiner. Results & Data Results & Data Vital Signs (Past 12 Hours) Vital Signs Temp Pulse Resp BP Pulse Ox Pulse Ox O2 Del Method 01/08/23 03:18 36.7 C 50 L 16 95/56 L 96 Room Air 01/07/23 20:00 Room Air 01/07/23 23:00 36.4 C L 55 L 20 105/61 97 Room Air 01/07/23 21:13 37.2 C 47 L 16 133/78 97 Room Air 01/07/23 20:04 37.2 C 47 L 16 133/78 97 Room Air 01/07/23 20:04 97 O2 Del Method 01/08/23 03:18 01/07/23 20:00 01/07/23 23:00 01/07/23 21:13 01/07/23 20:04 01/07/23 20:04 Room Air PG Care Time/CCT Total # of Minutes Spent Total Time Spent with Patient: Total time spent is greater than 50% in coordination of care (as documented) at patient's floor/unit and/or counseling patient: Coding Level of Care Code 26013 SUB INP/OBS CARE 2/35MIN Diagnoses Tension pneumothorax J93.0 COPD (chronic obstructive pulmonary disease) J44.9 Tobacco use disorder F17.200
--- NOTE | 2023-01-08 07:46 | XRay Report ---
SINGLE VIEW CHEST CLINICAL HISTORY: Pneumothorax FINDINGS: An AP, portable, upright chest radiograph is compared to chest x-rays and chest CT dated . The cardiomediastinal silhouette is unremarkable. A right-sided chest tube is unchanged in p osition. There is a likely a trace residual right apical pneumothorax. Right basilar opacities persis t. No large pleural effusion is seen. The bony thorax is grossly intact. IMPRESSION: 1. A right-sided chest tube is unchanged in position. There is likely trace residual right apical pne umothorax. 2. Right basilar opacities persist. ACT 112: Negative or not required by law. Electronically signed by: Jakob Gandara M.D. 01/08/2023 7:45 AM
[2023-01-08] MEDS: INSULIN ASPART PER UNIT CHARGE SC SCH ×3 (08:47→18:01)
[2023-01-08] MEDS: LANTUS PER UNIT CHARGE SQ SCH (08:47)
[2023-01-08] MEDS ORDERED: lisinopril 2.5 MG TAB PO SCH (09:00)
[2023-01-08] MEDS ORDERED: PRAVASTATIN SOD 20 MG TAB PO SCH (09:00)
--- NOTE | 2023-01-08 09:22 | Hospitalist Progress Note ---
Date of Service January 08, 2023 Assessment & Plan (1) Tension pneumothorax: Plan: . Pneumothorax: Repeat chest x-ray 01/08/23 demonstrates resolution of pneumothorax. Patient without significant discomfort or pleuritic pain this morning. Chest tube clamped at 0730. Repeat chest films to be obtained at 11:30 AM. If the patient is without symptoms and lung remains up, chest tube can be pulled at that time and we could plan for discharge later this afternoon. 2. CT study reviewed without significant findings. Slight emphysematous changes noted. 3. Smoking cessation and marijuana smoking cessation recommended. Patient acknowledges and understands need for smoking cessation. 4. Outpatient PFTs in 8 weeks recommended. Discussed the importance of this with the patient who acknowledges understanding. 5. Patient should avoid commercial flights or significant changes in barometric pressure for at least the next 4 to 5 weeks. Given the spontaneous nature of this event, would not recommend the patient never participate in scuba diving. Thank you for allowing us to participate in the care of this patient. We will follow-up with him after repeat chest x-ray. (2) COPD (chronic obstructive pulmonary disease): (3) Tobacco use disorder: Admission and Anticipated Discharge Date Admission Date: January 07, 2023 Results & Data Results & Data Vital Signs (Past 12 Hours) Vital Signs Temp Pulse Resp BP Pulse Ox O2 Del Method 01/08/23 08:04 97.9 F 61 20 103/55 L 97 Room Air 01/08/23 03:18 98.1 F 50 L 16 95/56 L 96 Room Air 01/07/23 23:00 97.5 F L 55 L 20 105/61 97 Room Air PG Care Time/CCT Total # of Minutes Spent Total Time Spent with Patient: Total time spent is greater than 50% in coordination of care (as documented) at patient's floor/unit and/or counseling patient: Coding Diagnoses Tension pneumothorax J93.0 COPD (chronic obstructive pulmonary disease) J44.9 Tobacco use disorder F17.200
--- NOTE | 2023-01-08 11:35 | XRay Report ---
SINGLE VIEW CHEST CLINICAL HISTORY: Pneumothorax. The chest tube has been clamped. FINDINGS: An AP, portable, upright chest radiograph is compared to chest x-rays performed earlier the same day 01/08/2023 and correlated with chest CT dated 01/07/2023. The cardiomediastinal silhouette is unremarkable. A right-sided chest tube is unchanged in position. There is a small right apical pneum othorax with approximately 9 mm pleural separation. This has increased in size from today's earlier e xamination. Right basilar opacities persist. No large pleural effusion is seen. The bony thorax is gr ossly intact. IMPRESSION: 1. A right-sided chest tube is unchanged in position. A small right apical pneumothorax has increased in size from today's earlier examination. 2. Mild right basilar opacities persist. ACT 112: Negative or not required by law. Electronically signed by: Jakob Gandara M.D. 01/08/2023 11:34 AM
--- NOTE | 2023-01-08 17:02 | Procedure Note ---
Procedure Note Date of Service January 08, 2023 Note Procedure: Removal of 8 [place] pigtail catheter Indication: Resolution/stable small trace apical pneumothorax after 8 hours of tube clamping [employer] Dr. Hannah Anesthesia none Patient was placed in a semiupright position. The dressing was taken down. Stay sutures were removed. On full expiration the catheter was removed and observed to be intact. An occlusive dressing was applied. The patient tolerated the procedure well without complication. 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 He should avoid any heavy exertion for about a week. Recommended he avoid smoking especially marijuana products. He should not scuba dive. Recommend he follow-up in the pulmonary clinic with myself or one of the physicians assistants in 2 weeks with a chest x-ray. Coding CPT Codes Pulmonary/Thoracic - Pulmonary and Thoracic: 14808 Remove lung catheter ([id number]) [facility] [place] Procedure Codes (Charges) Pulmonary/Thoracic Procedure 1: Pulmonary and Thoracic: 43360 Remove lung catheter
--- NOTE | 2023-01-08 17:05 | XRay Report ---
XR chest 1V portable CLINICAL HISTORY: f/u from 1130 CXR COMPARISON STUDY: Chest radiograph January 08, 2023 at 11:23 AM. FINDINGS: Right pleural catheter remains in place. A small right apical pneumothorax with superior pl eural separation of 7 mm is similar to prior chest radiograph. Linear bibasilar densities favor atele ctasis. There is no left pneumothorax. Cardiac size is normal. IMPRESSION: No significant change in a small right apical pneumothorax. Right pleural catheter in pl susie. ACT 112: Negative or not required by law. Electronically signed by: Garrett Bailey M.D. 01/08/2023 5:03 PM
--- NOTE | 2023-01-08 19:29 | Discharge Summary ---
Date of Service January 08, 2023 Admission HPI Per Admitting Provider Dennis is a 42-year-old male with a past medical history of diabetes mellitus, hypertension, hyperlipidemia, tobacco use who presents with shortness of breath and chest pain. He was found to have a spontaneous pneumothorax at the [facility] today Art is seen at the bedside Thursday night was loading his car. Had a cigarette after and laid down felt a sudden sharp pain shoot across his back. Went to lay flat and felt restricted. Couldnt lay on R side, L side was confirmable and fell asleep Got up this morning and was very short of breath and having a ton a ton of pain in his R shoulder and back. No wheezing [facility] Had an acupuncture treatment above the lip which actually helped his back muscle tension. Due to the severity of his symptoms was sent for an XR and was given a script for NSAID and muscle relaxer. Go ta call as he was walking in --> told to come directly to the ER No history of chest trauma or injury Denies history of heart disease No fevers, chills, or sweats. Denies cough, no sputum production Denies history of COPD, denies any inhaler use Tobacco Use: Since 14 years old, ~1ppd. Etoh: One day per week, 1-3 per sitting. No history of withdrawal Marijuana: Daily smoked in addition to vape pen, concentrates and flour Recreational Drug use: Intermittent methamphetamine use. smoked meth this past thursday, first travis ehe used in ~5 years. Denies hx of IVDU. Medical History: Reviewed Medications: Reviewed Surgical History: Reviewed Family history: Reviewed Allergies: Reviewed Code Status: Full Code Principal Diagnosis spontaneous pneumothorax treated with medical chest tube Discharge Exam patient with some pleuritic chest pain at chest tube site otherwise has good excursion no pleural rubs Discharge Data Allergies Allergy/AdvReac Type Severity Reaction Status Date / Time insulin degludec Allergy Unknown Unverified 11/03/22 13:56 [From Tresiba FlexTouch U-100] rosuvastatin AdvReac Intermediate Dizziness Verified 11/03/22 13:57 atorvastatin AdvReac sore Verified 11/03/22 13:56 shoulders Consultations 01/07/23 14:08 ED Decision to Admit Stat 01/07/23 20:04 Consult Pulmonology Routine Ordered Studies 01/07/23 13:53 CT chest diagnostic wo con Stat Hospital Course (1) Tension pneumothorax: . Pneumothorax: Repeat chest x-ray 01/08/23 demonstrates resolution of pneumothorax. Patient without significant discomfort or pleuritic pain this morning. Chest tube clamped at 0730. Repeat chest films to be obtained at 11:30 AM. shows small residual apical pneumothorax repeat later in the afternoon showed no increase in size subsequently chest tube was removed pulmonary communicated intention to discharge the patient is without symptoms After chest tube removed will be discharged home Smoking cessation and marijuana smoking cessation recommended. Patient acknowledges and understands need for smoking cessation. follow-up with pulmonary as an Outpatient, PFTs in 8 weeks recommended. (2) COPD (chronic obstructive pulmonary disease): (3) Tobacco use disorder: Total Time Total Time Spent Total Time Spent (In Minutes): it required greater than 30 minutes to prepare this patient for discharge Discharge Plan Discharge Items Patient Disposition: Home - Self-Care Reason For Visit: SPONTANEOUS TENSION PNEUMO Discharge Diagnosis: spontaneous tension pneumothorax s/p chest tube with resolution Activity: Per Instructions section Activity Comment: avoid strenous activity until cleared by Primary care Non-emergency contact: Primary Care Provider and [employer] Call non-emergency contact if: your symptoms worsen Follow-up/Referrals: Santos Hannah MD [Physician] - (We will call you in am with your lung specialist appt.) PCP,NO [Primary Care Provider] - Diet: Regular Addtl Attending Provider Instructions: Smoking cessation and marijuana smoking cessation strongly recommended. follow up with lung specialist and have Outpatient lung testin in about 8 weeks recommended. Please avoid commercial flights or significant changes in barometric pressure for at least the next 4 to 5 weeks. Given the spontaneous nature of this event, would not recommend the patient ever participate in scuba diving. Pending Studies at Discharge: No Stand-Alone Forms: My [facility] [employer], Smoking Cessation Medications and DC Order Prescriptions: Continued lisinopril 2.5 mg tablet 2.5 mg PO DAILY Rx Instructions: 5 MG TAB TO TAKE 2.5 DAILY Verified with [facility]- 01/07/23 (DME) Accu-Chek Guide test strips Strip See Rx Instructions .ROUTE .MEDSUPPLY Qty: 10 Rx Instructions: test 5 times daily insulin aspart U-100 [Novolog FlexPen U-100 Insulin] 100 unit/mL (3 mL) insulin pen 14 unit subcut DIRECTED Rx Instructions: INJECT 6 UNITS SQ LUNCH AND 8 UNITS SQ SUPPER FOR DIABETE 3 TIMES A DAY Verified with [facility] Pharmacist- 01/07/23 insulin glargine [Lantus Solostar U-100 Insulin] 100 unit/mL (3 mL) insulin pen 16 unit subcut BID Rx Instructions: INJECT 15 UNITS BID Verified with [facility] Pharmacist- 01/07/23 Baqsimi 3 mg/actuation spray,non-aerosol 3 mg intranasal ONCE Qty: 2 4RF Rx Instructions: [facility] pharmacist wasn't able to verify pravastatin 20 mg tablet 20 mg PO DAILY Rx Instructions: 40 MG TABLET IN HALF FOR 20 MG DAILY Verified with [facility] Pharmacist- 01/07/23 Discharge Orders: Discharge Order (Routine); Ordered 01/08/23 Ordered By: Robinson Quiroz/Other Patient Handouts: Managing Type 1 Diabetes Admission Data Admit Date/Time: 01/07/23 15:58 Attending Provider: Robinson Dodge Admit Provider: Tim Stearns Primary Care Provider: PCP,NO Other Providers: Tim Stearns ; Santos Hannah ; [facility] Other Interventions: Discharge Summary Assessment (RN) Last Done: 01/08/23 18:26 Coding Level of Care Code 45993 INP/OBS DISCH >30 MIN Diagnoses Tension pneumothorax J93.0 COPD (chronic obstructive pulmonary disease) J44.9 Tobacco use disorder F17.200
== END 2023-01-08 18:38 | disposition home or self-care (01) | DRG 201 ==
LOC: ED 12:13 → 4W 15:58 → SUATTDRO 15:58 → 4W 19:39